=== PATIENT | female | born 1965 | race Caucasian/White ===

== ENCOUNTER 2023-03-19 18:13 | Emergency (ER) | payer OTHER, MEDICARE, BC ==
[2023-03-19] MEDS ORDERED: LORazepam 2 MG/ML INJ IM STA (18:31)
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
[2023-03-19] MEDS ORDERED: BUTALB/APAP/CAFF 50-325-40MG TAB PO STA (19:10)
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
[2023-03-19] MEDS: clonazePAM 0.5 MG TAB PO STA ×2 (19:39→19:42)
[2023-03-19] MEDS ORDERED: clonazePAM 0.5 MG TAB PO STA (19:41)
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
[2023-03-19 21:18] VITALS: BP 110/75; PULSE 76; RESP 17; TEMP 98.4
== END 2023-03-19 21:13 | disposition home or self-care (01) ==
LOC: EC 18:13
DX: S09.90XA Unspecified injury of head, initial encounter (principal); F17.200 Nicotine dependence, unspecified, uncomplicated; F12.90 Cannabis use, unspecified, uncomplicated; Z86.59 Personal history of other mental and behavioral disorders; Z88.1 Allergy status to other antibiotic agents; Z88.2 Allergy status to sulfonamides; Z88.5 Allergy status to narcotic agent; Z88.8 Allergy status to other drugs, medicaments and biological substances; Z90.49 Acquired absence of other specified parts of digestive tract; V89.2XXA Person injured in unspecified motor-vehicle accident, traffic, initial encounter; Y92.410 Unspecified street and highway as the place of occurrence of the external cause
CPT/HCPCS: 70450; 71045; 72125; 99284